=== PATIENT | female | born 1990 | race Caucasian/White ===

== ENCOUNTER 2017-01-20 19:39 | Inpatient (IN) | payer MEDICAID, OTHER ==
[2017-01-20 20:07] VITALS: BMI 32.5
[2017-01-20] MEDS ORDERED: Lactated Ringer's 1,000 ML IV SCH ×2 (20:53→21:00)
[2017-01-20 21:50] VITALS: O2SAT 100
[2017-01-20 22:00] LABS: BASO % 0.3 % (0.0-2.0); EOS # 0.1 K/uL (0.0-0.7); EOS % 0.6 % (0.0-4.0); HEMOGLOBIN 11.6 g/dL (12.0-16.0); LYMPH # 1.9 K/uL (1.0-4.3); LYMPH % 20.3 % (20.0-40.0); MEAN CORPUSCULAR HEMOGLOBIN 24.1 pg (27.0-31.0); MEAN CORPUSCULAR HGB CONC 32.6 g/dL (33.0-37.0); MEAN PLATELET VOLUME 9.5 fl (7.2-11.7); MONO # 1.2 K/uL (0.0-0.8); MONO % 12.8 % (0.0-10.0); NEUT # 6.3 K/uL (1.8-7.0); NRBC % 0.1 % (0.0-0.0); RBC 4.81 Mil/uL (3.80-5.20); WHITE BLOOD COUNT 9.6 K/uL (4.8-10.8)
[2017-01-21] MEDS ORDERED: Oxytocin 30 units/LR 500ML 30 U/500 ML BAG IV ONE (03:00)
[2017-01-21] MEDS ORDERED: Fentanyl/Bupivacaine HCl 250 ML EPI ONE (06:40)
[2017-01-21] MEDS ORDERED: Bupivacaine HCl 0.25% PF (10 ml) Inj ONE (06:41)
[2017-01-21] MEDS ORDERED: Lidocaine 1% Inj (20ml) ONE (08:21)
--- NOTE | 2017-01-21 08:24 | OBADHP ---
Datetime: 01/20/2017 21:20 IP Chief Complaint Other: anhydramnios on US done on 01/20/17 Admit Comment, IP Provider: 26 yo at 39.1 weeks GA with EDC 01/26/17 by LMP 04/21/17 and confi rmed with first trimester US presents to OB ED for induction of labor after learning she has anhydram nios on US done today in OB office visit. pt reports + movement. denies vaginal bleeding, ROM or contraction. denies fever, chills, nausea, vomiting, headache, dizziness or blurry vision. pt is GBS neg. past ob hx: X 1 in 2008 past customer account representative hx: no hx STD, neg PAP in 2015. PMHx: sickle cell trait past sx hx: none social hx: denies smoking, drinking alcohol or recreational drug use medications: PNV allergies: NKDA PE: see in physical exam section. Assessment: 26 yo at 39.1 weeks GA with EDC 01/26/17 by LMP 04/21/17 and confirmed with firs t trimester US presents to OB ED for induction of labor after learning she has anhydramnios on US don e today in OB office visit. Plan: Admit to Labor and Delivery CBC, type and screen Continuous monitoring Cervidil 10 mg for labor induction Sultan Rebollar, PGY1 Addendum: I Examined Patient of Presentation. Patient Admitted for Induction of Labor Due To Anhydramnios. I Discussed Plan with Patient and All Patient Questions Answered. Maternal Well-Being and Well-Being Reassuring at This Time. [place] Extremities - PN: Normal Abdomen - PN: Normal Back - PN: Normal Lungs - PN: Normal Heart - PN: Normal Neurologic - PN: Normal HEENT - PN: Normal General - PN: Normal FHR - Baseline A Provider: 130 Gestation - Est Wks by US: 39.1 IP Hx Assessment: The History has been Reviewed and is Current Vital Signs Provider: Reviewed IP Chief Complaint: Other Genitourinary Exam: Normal DTRs - PN: Normal EGA AdmitDate IP: 39.1 IP Adm Impression: Term, intrauterine ; Intact Membranes IP Admit Plan: Admit to unit
[2017-01-21] MEDS ORDERED: Oxycodone/Acetaminophen 5/325 mg Tab PO PRN (09:23)
[2017-01-21] MEDS ORDERED: Benzocaine/Menthol SPRAY TOP PRN (09:23)
--- NOTE | 2017-01-21 09:32 | OBPN ---
Datetime: 01/21/2017 08:30 IP Informed Consent Obtain: Vaginal Delivery IP Progress Plan: Anticipate Vaginal Delivery IP Progress Note Comment: OB Hospitalist on-call Notiifed that she was fully dilated Anticipate MAHNDO Datetime: 01/20/2017 21:20 FHR - Baseline A Provider: 130 Gestation - Est Wks by US: 39.1 Vital Signs Provider: Reviewed
[2017-01-21 11:54] VITALS: BP 111/77; PULSE 108; RESP 20; TEMP 98.8
--- NOTE | 2017-01-21 14:40 | OBDS ---
DELIVERY PERSONNEL Delivery Doctor: Gina Jackson DO Painter: Oriana Tsai RN/Lamar Hilario RN/Fallon Ariza RN Anesthesiologist: Kirti Rodríguez MD MATERNAL INFORMATION Delivery Anesthesia: Epidural Medications in Delivery: Pitocin 30 units in 500 mls, Lidocaine Estimated Blood Loss (ml): 200 Placenta Cultured: No Maternal Complications: None RN Comments: Mother assited in delivery by reaching for with doctors guidance. Provider Comments: Over intact perineum, of live infant from ceph/compound presentation. Once infant's body was half out, mother grabbed infant and brought him to her chest. was bulbsucti oned and crying spontaneously. Delayed cord clamp and FOB cut cord. PLacenta was delivered intact s pontaneously. EBL 200cc She remained stable LABOR SUMMARY EDC: 01/26/2017 00:00 No. Babies in Womb: 1 Attempted: No Labor Anesthesia: Epidural LABOR INFORMATION Reason for Induction: Other Reason for Induction Other: Anhydramnios Onset of Labor: 01/21/2017 06:52 Complete Dilatation: 01/21/2017 08:15 Cervical Ripening Agents: Cervidil Oxytocin: Induction Group B Beta Strep: Negative Antibiotics # of Doses: N/A Antibiotics Time of Last Dose: N/A Steroids Given: None Reason Steroids Not Administered: Not Applicable Other Reason Not Administered: N/A MEMBRANES Membranes Rupture Method: Spontaneous Rupture of Membranes: 01/21/2017 05:11 Length of Rupture (hrs): 3.82 Amniotic Fluid Color: Clear Amniotic Fluid Amount: Scant Amniotic Fluid Odor: Normal STAGES OF LABOR Stage 1 hrs: 1 Stage 1 min: 23 Stage 2 hrs: 0 Stage 2 min: 45 Stage 3 hrs: 0 Stage 3 min: 17 Total Time in Labor hrs: 2 Total Time in Labor min: 25 VAGINAL DELIVERY Episiotomy: None Laceration Extension: N/A Laceration Type: None Laceration Repair: Not Applicable Initial Vag Sponge Count: 5 Final Vag Sponge Count: 5 Initial Vag Sharps Count: 1 Final Vag Sharps Count: 1 Sponge Count Correct: Yes Sharps Count Correct: Yes Count Comment: one syringe BABY A INFORMATION Delivery Date/Time: 01/21/2017 09:00 Method of Delivery: Vaginal Born in Route : No : N/A Forceps: N/A Vacuum Extraction: N/A Shoulder Dystocia : No SHOULDER DYSTOCIA BABY A Delivery Date/Time: 01/21/2017 09:00 PRESENTATION/POSITION BABY A Presentation: Compound - left hand Cephalic Presentation: Vertex Breech Presentation: N/A PLACENTA INFORMATION BABY A Placenta Delivery Time : 01/21/2017 09:17 Placenta Method of Delivery: Spontaneous Placenta Status: Delivered SCORES BABY A Heart Rate 1 min: >100 bpm Resp Effort 1 min: Good Cry Reflex Irritability 1 min: Cough or Sneeze or Pulls Away Muscle Tone 1 min: Active Motion Color 1 min: Body [place], Extremities Blue Resuscitation Effort 1 min: N/A SCORE 1 MIN: 9 Heart Rate 5 min: >100 bpm Resp Effort 5 min: Good Cry Reflex Irritability 5 min: Cough or Sneeze or Pulls Away Muscle Tone 5 min: Active Motion Color 5 min: Body [place], Extremities Blue Resuscitation Effort 5 min: N/A SCORE 5 MIN: 9 Resuscitation Effort 10 min: N/A INFORMATION BABY A Gestational Age at Delivery: 39.2 Gestational Status: Term Infant Outcome : Liveborn Infant Condition : Stable Infant Sex: Male IDENTIFICATION/MEDS BABY A ID Band Number: [id number] ID Band Location: Right Leg; Right Arm WEIGHT/LENGTH BABY A Infant Birthweight (gms): 3815 Infant Weight (lb): 8 Infant Weight (oz): 7 CORD INFORMATION BABY A No. Cord Vessels: 3 Nuchal Cord : N/A Nuchal Cord Other: N/A True Knot: N/A Infant Cord pH Baby Arterial: N/A Infant Cord pH Baby Venous: N/A Cord Blood Taken: Yes Banking/Donate Info: N/A Infant Suction: Mouth; Nose ASSESSMENT BABY A Complications: None Physical Findings at Delivery: Within Normal Limits Infant Respirations: Appears Normal Food Service Kitchen Supervisor/ALS Called : No Transferred To: Remains with Mother
[2017-01-22 08:14] LABS: BASO # 0.1 K/uL (0.0-0.2); BASO % 0.9 % (0.0-2.0); EOS # 0.1 K/uL (0.0-0.7); HEMOGLOBIN 10.6 g/dL (12.0-16.0); LYMPH # 2.3 K/uL (1.0-4.3); MEAN CORPUSCULAR HEMOGLOBIN 24.6 pg (27.0-31.0); MEAN CORPUSCULAR HGB CONC 33.7 g/dL (33.0-37.0); MONO # 1.2 K/uL (0.0-0.8); MONO % 11.5 % (0.0-10.0); NEUT # 6.9 K/uL (1.8-7.0); NEUT % 64.6 % (50.0-75.0); RBC 4.3 Mil/uL (3.80-5.20); RED CELL DISTRIBUTION WIDTH 16.4 % (11.5-14.5); WHITE BLOOD COUNT 10.6 K/uL (4.8-10.8)
[2017-01-22] MEDS: Multivitamin With Minerals Tab PO SCH (09:20)
[2017-01-23] MEDS: Multivitamin With Minerals Tab PO SCH (09:03)
--- NOTE | 2017-01-23 11:28 | OBPPN ---
Datetime: 01/23/2017 11:13 PP Pain Prov: Within normal limits PP Nausea Prov: Denies PP Flatus Prov: Yes PP BM Prov: Yes PP Breasts Prov: Normal PP Heart Prov: Normal PP Lungs Prov: Normal PP Abdomen/Uterus Prov: Normal PP Lochia Prov: Normal PP Vulva/Perineum Prov: Normal PP CVA Tenderness Prov: Normal PP Extremities Prov: Normal PP C/S Incision Prov: Not Applicable PP Progress Prov: Normal PP Comments Phys Exam Prov: Uterus firm 2FB below umbilicus PP Impression Prov: Normal progression PP Plan Prov: Discharge PP Progress Note Prov: PP day #2 s/p -- recovering well Discharge patient home Discharge instructions given All patient questions answered F/U office 6 wks IP PP Procedures: None Vital Signs Provider PP: Reviewed; Within Normal Limits
--- NOTE | 2017-01-23 11:28 | OBDCSUM ---
Datetime: 01/23/2017 11:26 Discharged to, Provider: Home Follow up at, Provider: Dr. Jackson Disch Instr Activity: Normal activity Disch Instr Diet: Regular Discharge Instructions, Provider: Routine instructions given Discharge Diagnosis, Provider: Term Delivered Discharge Time: 01/23/2017 11:26 Follow up in weeks, Provider: 6 weeks Disch Referrals: None Contraception discussed, Prov: Yes Disch Activity Restrictions: No lifting; Nothing in vagina - [place], tampons, douche Datetime: 01/23/2017 09:33 Discharged to, Provider: home Follow up at, Provider: DANIE Disch Instr Activity: Normal activity Disch Instr Diet: Regular Follow up in weeks, Provider: 6 weeks. Disch Activity Restrictions: No exercising
== END 2017-01-23 12:45 | disposition home or self-care (01) | DRG 373 ==
LOC: H.EROB2 19:39 → H.L&D 20:53 → H.OB/GYN 01-21 11:30
PROVIDERS: ADMIT Obstetrics & Gynecology Gynecology; ATTEND Obstetrics & Gynecology Gynecology
PROC: 10E0XZZ Delivery of Products of Conception, External Approach (ICD-10-PCS; principal; 2017-01-21)
PROC: 4A1HXCZ Monitoring of Products of Conception, Cardiac Rate, External Approach (ICD-10-PCS; 2017-01-21)
DX: O40.3XX0 Polyhydramnios, third trimester, not applicable or unspecified (principal); D57.3 Sickle-cell trait; O99.02 Anemia complicating childbirth; O32.6XX0 Maternal care for compound presentation, not applicable or unspecified; Z37.0 Single live birth; Z3A.39 39 weeks gestation of pregnancy

== ENCOUNTER 2017-05-30 16:39 | Emergency (ER) | payer OTHER ==
[2017-05-30 16:39] VITALS: BMI 32.5
[2017-05-30 16:59] VITALS: BP 113/70; PULSE 63; RESP 16; TEMP 96.9; O2SAT 99
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
--- NOTE | 2017-05-31 12:10 | RAD ---
HISTORY: back pain COMPARISON: No prior. FINDINGS: BONES: Alignment maintained. No fracture. No destructive bony lesion appreciable. DISC SPACES: Normal. SOFT TISSUES: Normal. OTHER FINDINGS: None. IMPRESSION: Normal radiographs of the thoracic spine.
== END 2017-05-30 19:13 | disposition home or self-care (01) ==
LOC: H.ER 16:39
DX: M54.9 Dorsalgia, unspecified (principal); V43.62XA Car passenger injured in collision with other type car in traffic accident, initial encounter; Y92.410 Unspecified street and highway as the place of occurrence of the external cause

== ENCOUNTER 2018-07-18 01:19 | Emergency (ER) | payer OTHER ==
[2018-07-18 01:19] VITALS: BMI 32.5
[2018-07-18 02:05] VITALS: PULSE 100; RESP 16; TEMP 98.3; O2SAT 100
[2018-07-18] MEDS ORDERED: DiphenhydrAMINE 12.5 mg/5 ml LIQ UD (5 ml) PO STA (02:25)
--- NOTE | 2018-07-18 02:28 | ED PDOC ---
HPI: General Adult Time Seen by Provider: 07/18/18 02:02 Chief Complaint (Nursing): ENT Problem Additional Complaint(s): 27 y/o F with no PMH who presents with sensation of lump in throat since this morning. Pt states that she has no known allergies. This morning she ate her normal breakfast and began to have a sensation of a foreign body/tightness in her throat with some SOB if she breathed through her mouth but no SOB if she breathed through her nose. She drank lots of water but it did not help. She denies difficulty swallowing, sore throat, dizziness, rash, throat itching. She did not take any medications to alleviate symptoms. She decided to present to ED as sensation persisted all day "just to make sure". Past Medical History Reviewed: Historical Data, Nursing Documentation, Vital Signs Vital Signs: Last Vital Signs Temp 98.3 F 07/18/18 02:01 Pulse 100 H 07/18/18 02:01 Resp 16 07/18/18 02:01 BP Pulse Ox 100 07/18/18 02:01 - Medical History PMH: Denies: Depression, Diabetes, HTN - Family History Family History: States: Unknown Family Hx - Home Medications Home Medications: Ambulatory Orders Medication Instructions Recorded Vit No.126/Iron/Folic 1 tab PO DAILY 01/20/17 [Classic Tablet] Cyclobenzaprine [Cyclobenzaprine 10 mg PO BID #14 tab 05/30/17 HCl] Ibuprofen [Motrin] 400 mg PO Q6 #30 tab 05/30/17 DiphenhydrAMINE [Benadryl] 25 mg PO Q6 PRN 5 Days cap 07/18/18 Epinephrine HCl [Epipen 0.3 mg MR ONCE PRN #1 ml 07/18/18 Auto-Injector] - Allergies Allergies/Adverse Reactions: Allergies Allergy/AdvReac Type Severity Reaction Status Date / Time No Known Allergies Allergy Verified 07/18/18 02:01 Review of Systems Constitutional: Negative for: Fever ENT: Negative for: Throat Pain, Throat Swelling Cardiovascular: Negative for: Chest Pain, Palpitations Gastrointestinal: Negative for: Nausea, Vomiting Skin: Negative for: Rash Physical Exam - Reviewed Nursing Documentation Reviewed: Yes Vital Signs Reviewed: Yes - Physical Exam Appears: Positive for: Well Skin: Positive for: Rash (2 mildly erythematous papules noted over Right eye. No other erythema noted. ) ENT: Positive for: TM Is/Are (normal B/L). Negative for: Nasal Congestion, Pharyngeal Erythema, Tonsillar Exudate, Tonsillar Swelling Cardiovascular/Chest: Positive for: Regular Rate, Rhythm Respiratory: Positive for: Normal Breath Sounds Gastrointestinal/Abdominal: Positive for: Normal Exam Lymphatic: Positive for: Normal Exam Neurologic/Psych: Positive for: Alert, Oriented - ECG O2 Sat by Pulse Oximetry: 100 Medical Decision Making Medical Decision Making: Benadryl 25mg PO x [address] to evaluate for foreign body 5:50am: Re-evaluated, erythematous rash on Right upper eyelid much improved and patient stating that her symptoms completely resolved with Benadryl. Pt refusing CT scan at this time. Risks and benefits of refusal explained to patient who signed out AMA as she did not want to stay for the CT scan as her symptoms had completely resolved. Patient advised to f/u with her primary card doctor for referral to global analytics head as her symptoms may have been related to allergy. PRescription for EpiPen and Benadryl given. Disposition - Clinical Impression Clinical Impression: Foreign body sensation in throat - Patient ED Disposition Is Patient to be Admitted: No - Disposition Disposition: Against Medical Advice Disposition Time: 05:38 Condition: FAIR Additional Instructions: Return to ER if you develop shortness of breath or choking sensation. Use EpiPen if this occurs as it may be an allergic reaction. F/u with global analytics head for more detailed testing. Prescriptions: DiphenhydrAMINE [Benadryl] 25 mg PO Q6 PRN 5 Days cap PRN Reason: Allergy Symptoms Epinephrine HCl [Epipen Auto-Injector] 0.3 mg MR ONCE PRN #1 ml PRN Reason: Anaphylaxis Forms: [facility] (Angolan) Print Language: [id number]
== END 2018-07-18 05:40 | disposition left against medical advice (07) ==
LOC: H.ER 01:19
DX: R09.89 Other specified symptoms and signs involving the circulatory and respiratory systems (principal)